=== PATIENT | female | born 1945 | race Caucasian/White ===

== ENCOUNTER 2017-10-12 05:33 | Day surgery (SDC) | payer MEDICARE, OTHER ==
[~2017-10-12] VITALS: Ht 172.7 cm; Wt 78.4 kg
[2017-10-12 06:13] VITALS: BP 130/70; PULSE 94; TEMP 98
[2017-10-12] MEDS ORDERED: TYLENOL 8 HR PO (06:17)
[2017-10-12] MEDS ORDERED: CYMBALTA 30MG30 MG PO (06:17)
[2017-10-12] MEDS ORDERED: MASON NATURAL2000 IU PO (06:18)
[2017-10-12] MEDS ORDERED: TYLENOL PM EXTR1 TA1 PO (06:19)
[2017-10-12] MEDS ORDERED: TUMS EXTRA STR750 MG PO (06:19)
[2017-10-12 09:50] VITALS: BP 121/78; PULSE 69; TEMP 97.7
[2017-10-12 10:05] VITALS: BP 120/72; PULSE 81
[2017-10-12] MEDS ORDERED: ULTRAM 50MG TAB50 MG PO (10:15)
[2017-10-12 10:20] VITALS: BP 126/71; PULSE 62
[2017-10-12 10:35] VITALS: BP 117/71; PULSE 65
== END 2017-10-12 11:41 | disposition home or self-care (01) ==
LOC: SDCO 05:33
DX: Z12.11 Encounter for screening for malignant neoplasm of colon (principal); K40.90 Unilateral inguinal hernia, without obstruction or gangrene, not specified as recurrent; M17.11 Unilateral primary osteoarthritis, right knee; J45.909 Unspecified asthma, uncomplicated; Z90.710 Acquired absence of both cervix and uterus; Z82.49 Family history of ischemic heart disease and other diseases of the circulatory system; Z82.3 Family history of stroke
CPT/HCPCS: 49650; G0121; A4314; C1781; J0690; J1100; J1885; J2250; J2405; J2704; J2710; J3010; J7120

== ENCOUNTER → 2018-06-13 | Outpatient (CLI) | payer MEDICARE, OTHER ==
[~2018-06-13] MED LIST: CYMBALTA 30MG30 MG PO; MASON NATURAL2000 IU PO; TUMS EXTRA STR750 MG PO; TYLENOL 8 HR PO; TYLENOL PM EXTR1 TA1 PO; ULTRAM 50MG TAB50 MG PO
== END ==
LOC: MC.RAD 07:49
DX: Z12.31 Encounter for screening mammogram for malignant neoplasm of breast (principal)

== ENCOUNTER → 2020-10-10 | Outpatient (CLI) | payer MEDICARE | LOC: MC.RAD 10:15 | DX: Z12.31 Encounter for screening mammogram for malignant neoplasm of breast (principal); N64.89 Other specified disorders of breast ==

== ENCOUNTER → 2020-10-17 | Outpatient (CLI) | payer MEDICARE | LOC: MC.RAD 07:50 | DX: R92.2 Inconclusive mammogram (principal) ==

== ENCOUNTER 2021-06-25 08:30 | Outpatient (RCR) | payer MEDICARE, OTHER | END 2021-06-26 | disposition home or self-care (01) | LOC: PT.GENESIS | DX: R26.89 Other abnormalities of gait and mobility (principal) ==

== ENCOUNTER → 2021-11-18 | Outpatient (CLI) | payer MEDICARE | LOC: MC.RAD 08:05 | DX: Z12.31 Encounter for screening mammogram for malignant neoplasm of breast (principal) ==